=== PATIENT | female | born 1965 | race Caucasian/White ===

== ENCOUNTER 2022-10-04 13:35 | Emergency (ER) | payer BC, SELFPAY ==
[2022-10-04 13:36] VITALS: BP 115/79; PULSE 66; RESP 14; TEMP 36.1; O2SAT 100; BMI 23.2
--- NOTE | 2022-10-04 14:31 | EKG12_ITS ---
Test Reason : HEART BURN Blood Pressure : / mmHG Vent. Rate : 065 BPM Atrial Rate : 065 BPM P-R Int : 138 ms QRS Dur : 080 ms QT Int : 450 ms P-R-T Axes : 072 063 065 degrees QTc Int : 468 ms Normal sinus rhythm Possible Left atrial enlargement Nonspecific ST abnormality Abnormal ECG Confirmed by TRISH SOLIS, TANIA ([id number]), film editor SAMANTHA VILLALPANDO ([id number]) on 10/06/2022 2:08:20 PM Referred By: JOELLEN Confirmed By:TANIA CHAMBERS MD
[2022-10-04] MEDS: Ondansetron 4 MG/2 ML Vial IV (14:45)
[2022-10-04] MEDS: 0.9% Normal Saline 1,000 ML 1000 ML IV (14:45)
[2022-10-04 14:59] LABS: Absolute Neutrophil Count 5.1 X10^3/uL (2.0-7.7); Basophil# 0.03 X10^3/uL; Basophil% 0.5 % (0-1); Eosinophil# 0.03 X10^3/uL; Eosinophils% 0.5 % (0-5); Hemoglobin 14.3 g/dL (12.0-15.0); Lymphocyte % 14.2 % (19-41); Mean Corp Hgb Conc 32.5 g/dL (32-36); Mean Corpuscular Volume 86.1 fL (81-99); Mean Platelet Vol. 9.4 fl (6.2-12.0); Monocyte# 0.29 X10^3/uL; Monocyte% 4.6 % (0-10); NRBC Flagged by Analyzer 0 % (0-5); Neutrophil # 5.08 X10^3/uL (2.7-7.7); Neutrophil % 79.9 % (47-70); Platelet Count 240 K/mm3 (150-450); RBC Distribution Width CV 12.2 % (11.6-14.6); RBC Distribution Width SD 38.5 fl (35.1-43.9); Red Blood Count 5.11 M/mm3 (4.2-5.4); White Blood Count 6.4 K/mm3 (4.4-11.0)
[2022-10-04 15:14] LABS: Anion Gap 7 (5-15); BUN 16 mg/dL (7-18); BUN/Creat Ratio 29.7 RATIO (10-20); Calcium,Total 9.7 mg/dL (8.5-10.1); Chloride 104 mmol/L (98-107); Creatinine, Serum 0.54 mg/dL (0.55-1.02); EST Glomerular Filtration Rate 124 mL/min (>60); Est Glom Filt Rate - Afr Amer 150 mL/min (>60); Estimated Creatinine Clearance 128.47 ml/min; Glucose 108 mg/dL (74-106); Magnesium 2.5 mg/dL (1.6-2.6); Potassium 3.5 mmol/L (3.5-5.1); Sodium Level 140 mmol/L (136-145); Troponin-I HS (w/2H Reflex) 15 pg/mL (3.0-54.0)
--- NOTE | 2022-10-04 15:20 | RAD_ITS ---
INDICATION: chest pain EXAMINATION/TECHNIQUE: X-RAY - XR Chest 2 Views COMPARISON: None. FINDINGS: Support devices: None. Mild atheromatous changes and hyperinflated lungs. No focal consolidations, effusions, or sizable pneumothorax. Cardiomediastinal silhouette is within normal limits. There are surgical clips within the mediastinum and right lower chest wall. No acute findings in the bones or soft tissues. RAD/Chest PA and Lateral IMPRESSION: No radiographic evidence of acute cardiopulmonary disease. Electronically Signed: Tan Frausto MD at 15:37 EDT ,
[2022-10-04 15:33] VITALS: BP 146/107; BP 146/87; BP 154/97; PULSE 66; PULSE 67; PULSE 73
--- NOTE | 2022-10-04 15:40 | EDS_ITS ---
HPI History of Present Illness Chief Complaint: Dizziness Narrative Narrative: Patient is a 57-year-old female who is presenting to the ER with her with chief complaint of lightheaded, nausea with no vomiting this started earlier today. Patient also has fullness in the right ear, feels like there is fluid that could drain out of her right ear. Patient's symptoms started this morning. Patient has no vertigo. Patient has had no near syncopal episodes. No headache. No chest pain or shortness of breath. Mild nausea with no vomiting. No diarrhea. No other acute complaints at this time. During orthostatics patient felt lightheaded, but did not follow over, no significant dizziness or vertigo during orthostatics. Patient has no recent changes to her diet recently. No sinus pressure or symptoms. No sore throat. No bilateral ear pain. PFSH PFSH Medical History no medical history Home Medications ondansetron 4 mg disintegrating tablet 4 mg PO Q4H PRN PRN Nausea #10 tabs 10/04/22 [Rx Last Taken Unknown] Allergy/AdvReac Type Severity Reaction Status Date / Time No Known Allergies Allergy Verified 10/04/22 13:36 Social History Smoking Status: Unknown if ever smoked ROS ROS ED ROS Narrative Unless otherwise stated in this report or unable to obtain because of the patient's clinical or mental status as evidenced by medical record, the patient's positive and negative responses for review of systems for constitutional, eyes, ENT, cardiovascular, respiratory, gastrointestinal, neurological, , musculoskeletal, and integument systems and related systems to the presenting problem are either stated in the history of present illness or were not pertinent or were negative for the symptoms and/or complaints related to the presenting medical problem. EXAM Physical Exam Narrative Exam Narrative: vital signs reviewed and patient is not hypoxic. General: The patient appears well and in no apparent distress. Patient is resting comfortably on cart. Not toxic, lethargic, or listless. Skin: Warm, dry, no pallor noted. There is no rash noted. Head: Normocephalic, atraumatic Eye: Normal conjunctiva, no drainage, EOMI. PERRL. Ears, Nose, Mouth, and Throat: oral mucosa is moist. Nares patent. Mouth without vesicles. Patient's bilateral TM shows no erythema, perforation or bulging. Patient does have several air-fluid levels noted behind bilateral TM, right greater than left. No signs of serous otitis media. No drainage, no perforation. No tenderness to palpation to bilateral outer ears. No tenderness to palpation to bilateral frontal or maxillary sinus. Cardiovascular: Regular Rate and Rhythm, no murmurs, gallops, or rubs Respiratory: Patient is in no distress, no accessory muscle use, lungs are clear to auscultation, no wheezing, rales or rhonchi Back: non-tender, no CVA tenderness bilaterally to percussion. NO CTLS midline or paracervicl tenderness to palpation. GI: Soft,No midepigastric tenderness to palpation. No flank pain bilateral. no tenderness to palpation, no masses appreciated. No rebound, guarding, or rigidity noted. Musculoskeletal: The patient has full range of motion of all extremities and joints with no difficulty. Patient has no motor, no sensory deficits. Neurological: A&O x4, normal speech, no focal neurological deficits. Psychiatric: Cooperative Const Vital Signs: 10/04/22 16:19 Pulse Rate 73 Respiratory Rate 16 Blood Pressure 146/93 H Pulse Ox 97 MDM MDM Lab Data Attestation: I reviewed the patient's lab results. Labs: Laboratory Results - last 24 hr 10/04/22 10/04/22 14:40 14:40 WBC 6.4 RBC 5.11 Hgb 14.3 Hct 44.0 MCV 86.1 MCH 28.0 MCHC 32.5 RDW Std Deviation 38.5 RDW Coeff of Concepcion 12.2 Plt Count 240 MPV 9.4 Immature Gran % (Auto) 0.300 Neut % (Auto) 79.9 H Lymph % (Auto) 14.2 L [place] % (Auto) 4.6 Eos % (Auto) 0.5 Baso % (Auto) 0.5 Absolute Neuts (auto) 5.1 Absolute Lymphs (auto) 0.90 Nucleated RBC % 0 Sodium 140 Potassium 3.5 Chloride 104 Carbon Dioxide 29.0 Anion Gap 7 BUN 16 Creatinine 0.54 L Estim Creat Clear Calc 128.47 Est GFR (MDRD) Af Amer 150 Est GFR (MDRD) Non-Af 124 BUN/Creatinine Ratio 29.7 H Glucose 108 H Calcium 9.7 Magnesium 2.5 Troponin I High Sens 15 Radiography Chest X-Ray - ED: 2 View and Read by ED Physician (Chest x-ray shows no acute cardiopulmonary disease, no infiltrate, no effusion.) Diagnostic Testing: Clinical Impression(s) from Imaging Studies Chest X-Ray 10/04/22 15:20 IMPRESSION: No radiographic evidence of acute cardiopulmonary disease. Electronically Signed: Tan Frausto MD at 15:37 EDT , EKG Initial EKG: Attestation: I personally reviewed and interpreted this EKG as follows: Comments: EKG interpretation. Normal sinus rhythm at 65 beats a minute. Normal axis deviation. No acute ST elevation, no acute ectopy. QTc of 468 Additional Tests and Interventions Additional Tests or Interventions: Patient felt significant better after IV fluids and Zofran. Education was done at bedside on treatment for some fluid noted behind her ears, some early sinusitis. Patient will continue increased fluids. Patient was sent home to use Zofran prophylactically as needed. Patient will treat her symptoms and if no improvement follow-up with PCP. No questions at discharge. No strokelike signs or symptoms, no vertiginous symptoms. Discharge Plan Triage Chief Complaint: Dizziness ED Provider: Angus Mace Dx/Rx/DC Orders Clinical Impression: Light-headedness, Nausea Instructions: Understanding Gastritis, ED Dehydration (Adult), ED Dizziness, Uncertain Cause, ED Sinusitis (No Antibiotics), ED Vomiting (Adult) Prescriptions: New ondansetron [ondansetron] 4 mg tablet,disintegrating 4 mg PO Q4H PRN PRN (Reason: Nausea) Qty: 10 0RF Primary Care Provider: Emely Gregory Referrals: Angus Mace DO [Emergency Provider] - Emely Gregory MD [Primary Care Provider] - Activity Restrictions/Additional Instructions: Use DayQuil, NyQuil, Flonase. Use sehy-[id number]-[id number] antacid medication as discussed if needed daily for the next 1 to 2 weeks. Use onya-xjc-fgrnmuo Maalox or Mylanta if needed. If no improvement in the next 7 to 10 days, follow-up with PCP for reevaluation Disposition Disposition: Home, Self Care Discharge Date/Time: 10/04/22 16:21
--- NOTE | 2022-10-04 16:02 | EX.ED.DYSGE1 ---
HPI History of Present Illness Chief Complaint: Dizziness PFS PFS Medical History no medical history Home Medications ondansetron 4 mg disintegrating tablet 4 mg PO Q4H PRN PRN Nausea #10 tabs 10/04/22 [Rx Last Taken Unknown] Allergy/AdvReac Type Severity Reaction Status Date / Time No Known Allergies Allergy Verified 10/04/22 13:36 Social History Smoking Status: Unknown if ever smoked EXAM Physical Exam Const Vital Signs: 10/04/22 13:36 10/04/22 14:18 10/04/22 14:31 Temperature 97 F L Temperature Source Temporal Pulse Rate 66 Pulse Rate [Lying] Pulse Rate [Sitting (for 1 minute prior to obtaining)] Pulse Rate [Standing (for 1 minute prior to obtaining)] Respiratory Rate 14 Respiratory Effort Normal Non-Labored Respiratory Pattern Normal Blood Pressure 115/79 Blood Pressure [Lying] Blood Pressure [Sitting (for 1 minute prior to obtaining)] Blood Pressure [Standing (for 1 minute prior to obtaining)] Blood Pressure Mean 91 Blood Pressure Mean [Lying] Blood Pressure Mean [Sitting (for 1 minute prior to obtaining)] Blood Pressure Mean [Standing (for 1 minute prior to obtaining)] Pulse Ox 100 Oxygen Delivery Method Room Air Room Air 10/04/22 15:33 Temperature Temperature Source Pulse Rate Pulse Rate [Lying] 66 Pulse Rate [Sitting (for 1 minute prior to obtaining)] 67 Pulse Rate [Standing (for 1 minute prior to obtaining)] 73 Respiratory Rate Respiratory Effort Respiratory Pattern Blood Pressure Blood Pressure [Lying] 146/87 H Blood Pressure [Sitting (for 1 minute prior to obtaining)] 154/97 H Blood Pressure [Standing (for 1 minute prior to obtaining)] 146/107 H Blood Pressure Mean Blood Pressure Mean [Lying] 106 Blood Pressure Mean [Sitting (for 1 minute prior to obtaining)] 116 Blood Pressure Mean [Standing (for 1 minute prior to obtaining)] 120 Pulse Ox Oxygen Delivery Method [facility] MDM Lab Data Labs: Laboratory Results - last 24 hr 10/04/22 10/04/22 14:40 14:40 WBC 6.4 RBC 5.11 Hgb 14.3 Hct 44.0 MCV 86.1 MCH 28.0 MCHC 32.5 RDW Std Deviation 38.5 RDW Coeff of Concepcion 12.2 Plt Count 240 MPV 9.4 Immature Gran % (Auto) 0.300 Neut % (Auto) 79.9 H Lymph % (Auto) 14.2 L [place] % (Auto) 4.6 Eos % (Auto) 0.5 Baso % (Auto) 0.5 Absolute Neuts (auto) 5.1 Absolute Lymphs (auto) 0.90 Nucleated RBC % 0 Sodium 140 Potassium 3.5 Chloride 104 Carbon Dioxide 29.0 Anion Gap 7 BUN 16 Creatinine 0.54 L Estim Creat Clear Calc 128.47 Est GFR (MDRD) Af Amer 150 Est GFR (MDRD) Non-Af 124 BUN/Creatinine Ratio 29.7 H Glucose 108 H Calcium 9.7 Magnesium 2.5 Troponin I High Sens 15 Radiography Diagnostic Testing: Clinical Impression(s) from Imaging Studies Chest X-Ray 10/04/22 15:20 IMPRESSION: No radiographic evidence of acute cardiopulmonary disease. Electronically Signed: Tan Frausto MD at 15:37 EDT , Discharge Plan Triage Chief Complaint: Dizziness ED Provider: Angus Mace Dx/Rx/DC Orders Clinical Impression: Light-headedness, Nausea Instructions: Understanding Gastritis, ED Dehydration (Adult), ED Dizziness, Uncertain Cause, ED Sinusitis (No Antibiotics), ED Vomiting (Adult) Prescriptions: New ondansetron [ondansetron] 4 mg tablet,disintegrating 4 mg PO Q4H PRN PRN (Reason: Nausea) Qty: 10 0RF Primary Care Provider: Emely Gregory Referrals: Angus Mace DO [Emergency Provider] - Emely Gregory MD [Primary Care Provider] - Activity Restrictions/Additional Instructions: Use DayQuil, NyQuil, Flonase. Use bhru-vha-arwglsd antacid medication as discussed if needed daily for the next 1 to 2 weeks. Use ifiu-icm-shascdd Maalox or Mylanta if needed. If no improvement in the next 7 to 10 days, follow-up with PCP for reevaluation Disposition Disposition: Home, Self Care
[2022-10-04 16:19] VITALS: BP 146/93; PULSE 73; RESP 16; O2SAT 97
[2022-10-04 16:55] LABS: Reflex Troponin-HS? (from REC) Y
== END 2022-10-04 16:21 | disposition home or self-care (01) ==
PROVIDERS: Emergency Provider Emergency Medicine; PCP Internal Medicine; Visit Provider Emergency Medicine
DX: R42 Dizziness and giddiness (principal)
CPT/HCPCS: 71046; 80048; 83735; 84484; 85025; 93005; 96361; 96374; 99285; J7030; A4216; J2405